=== PATIENT | female | born 1945 | race Caucasian/White ===

== ENCOUNTER 2018-03-20 20:30 | Emergency (ER) | payer MEDICARE ==
[~2018-03-20] VITALS: Ht 154.9 cm; Wt 95.4 kg
[2018-03-20] MEDS ORDERED: DIOVAN HC2 PO (20:42)
[2018-03-20] MEDS ORDERED: ASPIRIN CHEWABL81 MG PO (20:43)
[2018-03-20] MEDS ORDERED: METFORMIN500 M2 PO (20:43)
[2018-03-20] MEDS ORDERED: GLIMEPIRIDE2 MG PO (20:44)
[2018-03-20] MEDS ORDERED: AMLODIPINE5 MG PO (20:44)
[2018-03-20] MEDS ORDERED: BENADRYL 50MG C50 MG PO (23:29)
[2018-03-20 23:58] VITALS: BP 139/64
== END 2018-03-20 23:58 | disposition home or self-care (01) ==
LOC: EDSEX 20:30 → ED 20:30
DX: T63.421A Toxic effect of venom of ants, accidental (unintentional), initial encounter (principal); L50.0 Allergic urticaria; E11.9 Type 2 diabetes mellitus without complications; I10 Essential (primary) hypertension

== ENCOUNTER 2019-03-19 06:44 | Day surgery (SDC) | payer MEDICARE ==
[~2019-03-19] VITALS: Ht 154.9 cm; Wt 93.0 kg
[~2019-03-19 06:44] MED LIST: AMLODIPINE BESYL5 MG PO; BENADRYL 50MG C50 MG PO; DIOVAN HC2 PO; ECOTRIN LOW STR81 MG PO; GLIMEPIRIDE4 MG PO; HYDROCHLOROT25 MG PO; LOSARTAN POTAS100 MG PO; METFORMIN500 M2 PO
[2019-03-19 12:16] VITALS: BP 124/60
[2019-03-19] MEDS ORDERED: KEFLEX500 MG PO (12:47)
== END 2019-03-19 13:05 | disposition home or self-care (01) ==
LOC: ORM 06:44
PROVIDERS: ATTEND Plastic Surgery
PROC: 0HR0X73 Replacement of Scalp Skin with Autologous Tissue Substitute, Full Thickness, External Approach (ICD-10-PCS; principal; 2019-03-19)
PROC: 0HR1X73 Replacement of Face Skin with Autologous Tissue Substitute, Full Thickness, External Approach (ICD-10-PCS; 2019-03-19)
PROC: 0HX1XZZ Transfer Face Skin, External Approach (ICD-10-PCS; 2019-03-19)
PROC: 0HX0XZZ Transfer Scalp Skin, External Approach (ICD-10-PCS; 2019-03-19)
PROC: 0HB2XZZ Excision of Right Ear Skin, External Approach (ICD-10-PCS; 2019-03-19)
PROC: 0HX2XZZ Transfer Right Ear Skin, External Approach (ICD-10-PCS; 2019-03-19)
PROC: 0HBCXZZ Excision of Left Upper Arm Skin, External Approach (ICD-10-PCS; 2019-03-19)
PROC: 0HXCXZZ Transfer Left Upper Arm Skin, External Approach (ICD-10-PCS; 2019-03-19)
DX: C43.4 Malignant melanoma of scalp and neck (principal); C43.39 Malignant melanoma of other parts of face; C43.21 Malignant melanoma of right ear and external auricular canal; E11.9 Type 2 diabetes mellitus without complications; I10 Essential (primary) hypertension